=== PATIENT | female | born 1985 | race Caucasian/White ===

== ENCOUNTER → 2016-04-11 | Outpatient (REF) | payer OTHER ==
[~2016-04-11] MED LIST: COLA100C PO; IBUP80TA PO; PERCOCET PO; VITAPRTA PO
[2016-04-11 15:50] LABS: ANION GAP 9 MEQ/L (8-16); BLOOD UREA NITROGEN 6 MG/DL (7-18); CARBON DIOXIDE LEVEL 25 MEQ/L (21-32); CHLORIDE LEVEL 106 MEQ/L (98-107); GLOMERULAR FILTRATION RATE > 60.0 (>60); GLUCOSE, FASTING 81 MG/DL (70-105); POTASSIUM SERUM 4.4 MEQ/L (3.5-5.1); SODIUM LEVEL 140 MEQ/L (136-145)
[2016-04-12 10:08] LABS: CONTROL LINE INT CTR LINE PRESENT; HIV SCRN NEGATIVE (NEGATIVE); HIV SCRN1 NEGATIVE (NEGATIVE)
[2016-04-13 09:51] LABS: HEPATITIS B SURFACE ANTIBODY POSITIVE (POSITIVE)
== END ==
LOC: M SFHCPLAZ 12:30
PROVIDERS: ATTEND Internal Medicine Infectious Disease
DX: Z20.6 Contact with and (suspected) exposure to human immunodeficiency virus [HIV] (principal)

== ENCOUNTER → 2016-05-06 | Outpatient (REF) | payer MEDICAID, OTHER | LOC: M SFHCWAGY 11:37 | PROVIDERS: ATTEND Nurse Practitioner Women's Health | DX: Z12.4 Encounter for screening for malignant neoplasm of cervix (principal); R87.622 Low grade squamous intraepithelial lesion on cytologic smear of vagina (LGSIL); Z11.3 Encounter for screening for infections with a predominantly sexual mode of transmission ==

== ENCOUNTER → 2016-06-13 | Outpatient (REF) | payer OTHER | LOC: M SFHCWAGY 11:25 | PROVIDERS: ATTEND Nurse Practitioner Women's Health | DX: R87.810 Cervical high risk human papillomavirus (HPV) DNA test positive (principal); N87.1 Moderate cervical dysplasia ==

== ENCOUNTER → 2017-01-05 | Outpatient (REF) | payer OTHER ==
[~2017-01-05] MED LIST changes: -COLA100C PO; +COLA100C5 PO
[2017-01-05 13:44] LABS: CONTROL LINE HCG INT CTR LINE PRESENT
[2017-01-05 13:59] LABS: ANION GAP 8 MEQ/L (8-16); BLOOD UREA NITROGEN 10 MG/DL (7-18); CALCIUM LEVEL 9.1 MG/DL (8.5-10.1); CARBON DIOXIDE LEVEL 26 MEQ/L (21-32); CHLORIDE LEVEL 106 MEQ/L (98-107); CREATININE FOR GFR 0.71 MG/DL (0.55-1.02); GLOMERULAR FILTRATION RATE > 60.0 (>60); GLUCOSE, FASTING 77 MG/DL (70-105); POTASSIUM SERUM 4.2 MEQ/L (3.5-5.1); SODIUM LEVEL 140 MEQ/L (136-145)
== END ==
LOC: M SFHCPLAZ 10:53
PROVIDERS: ATTEND Family Medicine
DX: Z20.6 Contact with and (suspected) exposure to human immunodeficiency virus [HIV] (principal)

== ENCOUNTER → 2017-02-23 | Outpatient (REF) | payer OTHER | LOC: M LAB REF 17:54 | PROVIDERS: ATTEND Specialist | DX: N87.1 Moderate cervical dysplasia (principal) ==

== ENCOUNTER → 2017-04-21 | Outpatient (REF) | payer OTHER ==
[2017-04-21 13:59] LABS: CONTROL LINE HCG INT CTR LINE PRESENT; HCG, SERUM QUALITATIVE NEGATIVE (NEGATIVE)
[2017-04-21 15:22] LABS: HIV 1&2 SCREEN CENTAUR NEGATIVE (NEGATIVE)
== END ==
LOC: M SFHCPLAZ 11:22
DX: Z20.6 Contact with and (suspected) exposure to human immunodeficiency virus [HIV] (principal)
CPT/HCPCS: 84703

== ENCOUNTER → 2017-10-31 | Outpatient (REF) | payer OTHER ==
[2017-11-04 08:06] LABS: HPV HYBRID CAPTURE II Positive (Negative)
== END ==
LOC: M LAB REF 09:23
DX: Z12.4 Encounter for screening for malignant neoplasm of cervix (principal)
CPT/HCPCS: 88142

== ENCOUNTER → 2018-01-09 | Outpatient (REF) | payer OTHER ==
[2018-01-09 18:02] LABS: BASO # 0.1 10^3/uL (0.0-0.2); BASO % 0.4 % (0.0-1.0); EOS # 0.3 10^3/uL (0.0-0.50); EOS % 2.4 % (0.0-3.0); HEMATOCRIT 44.2 % (36.0-47.0); HEMOGLOBIN 14.8 g/dl (12.0-15.5); IMMATURE GRANULOCYTE % 0.6 % (0-3.0); LYMPH # 3.9 10^3/uL (1.5-4.5); LYMPH % 33.8 % (24.0-44.0); MEAN CORPUSCULAR HGB CONC 33.5 g/dl (32.0-36.5); MEAN CORPUSCULAR VOLUME 92.7 fl (80.0-96.0); MONO # 1.3 10^3/uL (0.0-0.8); MONO % 11.1 % (0.0-5.0); NEUTROPHILS # 5.9 10^3/uL (1.8-7.7); NEUTROPHILS % 51.7 % (36.0-66.0); PLATELET COUNT, AUTOMATED 297 10^3/uL (150-450); RED BLOOD COUNT 4.77 10^6/uL (4.00-5.40); RED CELL DISTRIBUTION WIDTH 12.4 % (11.5-14.5); WHITE BLOOD COUNT 11.5 10^3/uL (4.0-10.0)
[2018-01-09 22:14] LABS: ALBUMIN 4.1 GM/DL (3.2-5.2); ALBUMIN/GLOBULIN RATIO 1.37 (1.00-1.93); ALKALINE PHOSPHATASE 76 U/L (45-117); ALT/SGPT 23 U/L (12-78); ANION GAP 7 MEQ/L (8-16); AST/SGOT 18 U/L (7-37); BILIRUBIN,TOTAL 0.4 MG/DL (0.2-1.0); BLOOD UREA NITROGEN 10 MG/DL (7-18); CALCIUM LEVEL 9.6 MG/DL (8.5-10.1); CARBON DIOXIDE LEVEL 27 MEQ/L (21-32); CHLORIDE LEVEL 106 MEQ/L (98-107); CREATININE FOR GFR 0.72 MG/DL (0.55-1.30); GLOMERULAR FILTRATION RATE > 60.0 (>60); GLUCOSE, FASTING 87 MG/DL (70-100); POTASSIUM SERUM 4.2 MEQ/L (3.5-5.1); SODIUM LEVEL 140 MEQ/L (136-145); TOTAL PROTEIN 7.1 GM/DL (6.4-8.2)
[2018-01-10 10:10] LABS: HIV 1&2 SCREEN CENTAUR NEGATIVE (NEGATIVE)
== END ==
LOC: M SFHCPLAZ 14:46
DX: Z20.6 Contact with and (suspected) exposure to human immunodeficiency virus [HIV] (principal); I49.3 Ventricular premature depolarization; F32.1 Major depressive disorder, single episode, moderate
CPT/HCPCS: 80053

== ENCOUNTER → 2018-01-10 | Outpatient (CLI) | payer OTHER | LOC: M WUC 17:23 | DX: D72.829 Elevated white blood cell count, unspecified (principal) | CPT/HCPCS: 71046 ==

== ENCOUNTER → 2018-04-17 | Outpatient (REF) | payer OTHER ==
[2018-04-17 16:12] LABS: HCG, SERUM QUALITATIVE NEGATIVE (NEGATIVE)
[2018-04-17 17:40] LABS: BASO # 0.1 10^3/uL (0.0-0.2); BASO % 0.7 % (0.0-1.0); EOS # 0.3 10^3/uL (0.0-0.50); EOS % 2.3 % (0.0-3.0); HEMATOCRIT 45.4 % (36.0-47.0); HEMOGLOBIN 14.9 g/dl (12.0-15.5); LYMPH # 3.1 10^3/uL (1.5-4.5); LYMPH % 27.9 % (24.0-44.0); MEAN CORPUSCULAR HEMOGLOBIN 30.7 pg (27.0-33.0); MEAN CORPUSCULAR HGB CONC 32.8 g/dl (32.0-36.5); MEAN CORPUSCULAR VOLUME 93.4 fl (80.0-96.0); MONO # 1.5 10^3/uL (0.0-0.8); MONO % 13.7 % (0.0-5.0); NEUTROPHILS % 54.1 % (36.0-66.0); PLATELET COUNT, AUTOMATED 301 10^3/uL (150-450); RED BLOOD COUNT 4.86 10^6/uL (4.00-5.40); WHITE BLOOD COUNT 11.1 10^3/uL (4.0-10.0)
[2018-04-17 22:57] LABS: CHLAMYDIA DNA AMPLIFICATION NEGATIVE (NEGATIVE); GC DNA AMPLIFICATION NEGATIVE (NEGATIVE)
[2018-04-18 11:02] LABS: HIV 1&2 SCREEN CENTAUR NEGATIVE (NEGATIVE)
== END ==
LOC: M SFHCPLAZ 13:22
PROVIDERS: ATTEND Family Medicine
DX: D72.829 Elevated white blood cell count, unspecified (principal); Z20.6 Contact with and (suspected) exposure to human immunodeficiency virus [HIV]

== ENCOUNTER → 2018-07-03 | Outpatient (REF) | payer BC ==
[2018-07-03 15:55] LABS: BASO # 0.1 10^3/uL (0.0-0.2); BASO % 0.6 % (0.0-1.0); EOS # 0.2 10^3/uL (0.0-0.50); EOS % 1.9 % (0.0-3.0); HEMATOCRIT 46.9 % (36.0-47.0); HEMOGLOBIN 15.5 g/dl (12.0-15.5); LYMPH # 2.9 10^3/uL (1.5-4.5); LYMPH % 31.3 % (24.0-44.0); MEAN CORPUSCULAR HEMOGLOBIN 30.3 pg (27.0-33.0); MEAN CORPUSCULAR VOLUME 91.8 fl (80.0-96.0); MONO % 10.6 % (0.0-5.0); NEUTROPHILS # 5.1 10^3/uL (1.8-7.7); NEUTROPHILS % 54.7 % (36.0-66.0); PLATELET COUNT, AUTOMATED 346 10^3/uL (150-450); RED BLOOD COUNT 5.11 10^6/uL (4.00-5.40); WHITE BLOOD COUNT 9.3 10^3/uL (4.0-10.0)
[2018-07-03 16:19] LABS: ALBUMIN 4.1 GM/DL (3.2-5.2); ALT/SGPT 20 U/L (12-78); BILIRUBIN,TOTAL 0.4 MG/DL (0.2-1.0); BLOOD UREA NITROGEN 7 MG/DL (7-18); CALCIUM LEVEL 9.5 MG/DL (8.5-10.1); CARBON DIOXIDE LEVEL 26 MEQ/L (21-32); CHLORIDE LEVEL 105 MEQ/L (98-107); CREATININE FOR GFR 0.75 MG/DL (0.55-1.30); GLOMERULAR FILTRATION RATE > 60.0 (>60); GLUCOSE, FASTING 81 MG/DL (70-100); POTASSIUM SERUM 4.3 MEQ/L (3.5-5.1); SODIUM LEVEL 137 MEQ/L (136-145); TOTAL PROTEIN 7.6 GM/DL (6.4-8.2); TROPONIN I < 0.02 NG/ML (< 0.10)
[2018-07-04 11:16] LABS: HIV 1&2 SCREEN CENTAUR NEGATIVE (NEGATIVE)
== END ==
LOC: M SFHCPLAZ 14:22
PROVIDERS: ATTEND Family Medicine
DX: R22.1 Localized swelling, mass and lump, neck (principal); R52 Pain, unspecified; R50.9 Fever, unspecified; R06.02 Shortness of breath; R07.89 Other chest pain

== ENCOUNTER → 2018-07-03 | Outpatient (REF) | payer BC | LOC: M SFHCPLAZ 15:38 | PROVIDERS: ATTEND Family Medicine | DX: R22.1 Localized swelling, mass and lump, neck (principal); R50.9 Fever, unspecified ==

== ENCOUNTER → 2018-07-03 | Outpatient (CLI) | payer BC ==
--- NOTE | 2018-07-03 16:08 | REP ---
HISTORY: Cough. COMPARISON: Multiple, the latest 01/10/2018. FINDINGS: The superior mediastinal structures are midline. The cardiac silhouette is unremarkable in size, shape and position. The diaphragmatic surfaces of the lungs are regular and the costophrenic angles are clear. The pulmonary cerda are clear. The imaged osseous structures are intact. IMPRESSION: There is no acute cardiopulmonary disease. Electronically Signed by Sean Barajas DO 07/03/2018 04:31 P
== END ==
LOC: M RAD 14:47
PROVIDERS: ATTEND Family Medicine
DX: R06.02 Shortness of breath (principal)

== ENCOUNTER 2018-08-08 19:12 | Day surgery (SDC) | payer BC ==
[~2018-08-08] VITALS: Ht 162.6 cm; Wt 68.6 kg
[2018-08-08] MEDS ORDERED: TRUVTAB PO (19:28)
[2018-08-08 20:03] LABS: BASO # 0.1 10^3/uL (0.0-0.2); BASO % 0.4 % (0.0-1.0); EOS # 0.2 10^3/uL (0.0-0.50); EOS % 1.2 % (0.0-3.0); HEMATOCRIT 43.5 % (36.0-47.0); HEMOGLOBIN 14.7 g/dl (12.0-15.5); LYMPH # 4.5 10^3/uL (1.5-4.5); LYMPH % 29.7 % (24.0-44.0); MEAN CORPUSCULAR HEMOGLOBIN 30.7 pg (27.0-33.0); MEAN CORPUSCULAR HGB CONC 33.8 g/dl (32.0-36.5); MEAN CORPUSCULAR VOLUME 90.8 fl (80.0-96.0); MONO # 1.5 10^3/uL (0.0-0.8); MONO % 10.1 % (0.0-5.0); NEUTROPHILS # 8.7 10^3/uL (1.8-7.7); NEUTROPHILS % 57.7 % (36.0-66.0); PLATELET COUNT, AUTOMATED 312 10^3/uL (150-450); RED BLOOD COUNT 4.79 10^6/uL (4.00-5.40); WHITE BLOOD COUNT 15.1 10^3/uL (4.0-10.0)
[2018-08-08 21:04] LABS: BLOOD UREA NITROGEN 7 MG/DL (7-18); CALCIUM LEVEL 8.9 MG/DL (8.5-10.1); CARBON DIOXIDE LEVEL 23 MEQ/L (21-32); CHLORIDE LEVEL 106 MEQ/L (98-107); CREATININE FOR GFR 0.66 MG/DL (0.55-1.30); GLOMERULAR FILTRATION RATE > 60.0 (>60); GLUCOSE, FASTING 108 MG/DL (70-100); HCG, SERUM QUANTITATIVE 1882 MIU/ML; POTASSIUM SERUM 4.1 MEQ/L (3.5-5.1); SODIUM LEVEL 137 MEQ/L (136-145)
[2018-08-08] MEDS ORDERED: MORPHINE 4 MG/ML 1ML VIAL/SYRINGE (J2270) IV ONE (21:30)
[2018-08-08] MEDS ORDERED: NS 1,000 ML IV ONE (21:30)
[2018-08-08] MEDS ORDERED: ONDANSETRON 4MG/2ML VIAL (J2405) IV ONE (21:30)
--- NOTE | 2018-08-08 22:13 | REPVR ---
EXAM: US First Trimester, Transabdominal and US , Transvaginal US Duplex Artery or Vein of the Abdominal and/or Reproductive Organs, Limited Ovaries EXAM DATE/TIME: 08/08/2018 9:40 PM CLINICAL HISTORY: 32 years old, female; complicated by abdominal or pelvic pain; Right lower quadrant; First trimester; Gestational age or lmp: 6; ; Additional info: Vaginal bleeding TECHNIQUE: Imaging protocol: Real-time transabdominal obstetrical ultrasound of the maternal pelvis and a first trimester , less than 14 weeks 0 days, with image documentation. Transvaginal imaging was used for better evaluation of the fetus and adnexa. Imaging protocol: Real-time duplex ultrasound scan of the arterial or venous flow with solo scale, color Doppler flow and spectral waveform analysis. Limited duplex exam focused on the ovaries. Duplex exam was performed to evaluate for ovarian torsion or mass. COMPARISON: None. FINDINGS: The uterus is anteverted and measures 7.9 x 4.3 x 5.3 cm. The endometrium was not measured, but appears thickened. No intrauterine gestational sac was identified. The right ovary measures 2.7 x 2.0 x 3.8 cm and contains a 1.6 x 1.6 x 1.2 cm corpus luteum. There is normal internal arterial flow to brain, with peak systolic velocity 24.9 cm/s, end diastolic velocity 12.1 cm/s and resistive index 0.51. Adjacent to the right ovary in the adnexa is a hyperechoic, thickwalled mass measuring 2.9 x 2.6 x 2.7 cm. The left ovary measures 1.4 x 3.5 x 1.7 cm and appears unremarkable. There is normal internal arterial flow, with peak systolic velocity 8.2 cm/s, end diastolic velocity 4.3 cm/s and resistive index 0.48. No significant free fluid is demonstrated in the pelvis. IMPRESSION: 1. No intrauterine gestation identified. 2. Thickwalled right adnexal mass adjacent to the ovary measuring up to 2.9 cm, suspicious for ectopic until proven otherwise. 3. 1.6 cm right ovarian corpus luteum. 4. Normal internal arterial flow to both ovaries, without torsion. Electronically signed by: Yung Landrum On 08/08/2018 22:13:45 PM
[2018-08-08] MEDS ORDERED: BUPIVACAINE HCL 0.25% 30 ML VIAL As Ordered ONE (22:46)
[2018-08-08] MEDS ORDERED: IBUP-1093 PO (22:57)
[2018-08-08] MEDS ORDERED: LIDOCAINE 2% INJ 100 MG/5 ML SDV (FOR ANES.) As Ordered ONE (23:11)
[2018-08-08] MEDS ORDERED: ROCURONIUM BROMIDE 50 MG/5 ML VIAL As Ordered ONE (23:11)
[2018-08-08] MEDS ORDERED: PROPOFOL 200 MG/20 ML VIAL As Ordered ONE (23:11)
[2018-08-08] MEDS ORDERED: MIDAZOLAM INJ 2 MG/2 ML VIAL (J2250) As Ordered ONE (23:12)
[2018-08-08] MEDS ORDERED: fentaNYL 250 MCG/5 ML INJECTION (J3010) As Ordered ONE (23:12)
[2018-08-08] MEDS ORDERED: dexameTHASONE 4 MG/ML 1ML VIAL (J1100) As Ordered ONE (23:34)
[2018-08-08] MEDS ORDERED: ONDANSETRON 4MG/2ML VIAL (J2405) As Ordered ONE (23:46)
[2018-08-08] MEDS ORDERED: KETOROLAC 60 MG/2 ML VIAL (J1885) As Ordered ONE (23:46)
[2018-08-09] VITALS (7 sets, daily range): BP systolic 98–128; BP diastolic 56–72
[2018-08-09] MEDS ORDERED: SUGAMMADEX SODIUM 500 MG/5 ML VIAL (BRIDION) As Ordered ONE (00:01)
[2018-08-09] MEDS ORDERED: fentaNYL 100 MCG/2 ML INJECTION (J3010) As Ordered ONE (00:22)
[2018-08-09] MEDS: fentaNYL 100 MCG/2 ML INJECTION (J3010) IV PRN ×3 (00:25→00:40)
[2018-08-09] MEDS ORDERED: PERCOCET 5MG/325MG TAB As Ordered ONE (00:26)
[2018-08-09] MEDS ORDERED: LR 1,000 ML IV SCH ×2 (00:30)
[2018-08-09] MEDS ORDERED: PERCOCET 5MG/325MG TAB PO PRN ×3 (00:30)
[2018-08-09] MEDS ORDERED: ONDANSETRON 4MG/2ML VIAL (J2405) IV PRN (00:30)
[2018-08-09] MEDS ORDERED: MEPERIDINE INJ 25 MG/ML VIAL (J2175) IV PRN (00:30)
[2018-08-09] MEDS ORDERED: METOCLOPRAMIDE INJ 10MG/2ML VIAL (J2765) IV PRN (00:30)
[2018-08-09] MEDS ORDERED: OXYC1TAB23 PO (09:20)
[2018-08-09] MEDS ORDERED: IBUP-1022 PO (09:21)
[2018-08-09] MEDS ORDERED: IBUPROFEN 800 MG TAB PO PRN (09:30)
--- NOTE | 2018-08-09 16:34 | RO ---
DATE OF PROCEDURE: 08/08/2018 PREPROCEDURE DIAGNOSIS: Right ectopic . POSTPROCEDURE DIAGNOSIS: Right ectopic . PROCEDURE: Laparoscopic right salpingectomy. SURGEON: Conor Mckeon MD TRAFFIC DIRECTOR: ANESTHESIA: General endotracheal. FINDINGS: 4 cm ectopic in the ampullary portion of the right fallopian tube, adhesions of omentum to the anterior abdominal wall, adhesions of bladder to the uterus and anterior abdominal wall from prior sections, normal appearing left ovary and fallopian tube. Filmy adhesions of the posterior cul-de-sac. ESTIMATED BLOOD LOSS: 25 mL. URINE OUTPUT: 75 mL. DESCRIPTION OF PROCEDURE: The patient was taken to the operating room where general endotracheal anesthesia was induced. She was prepped and draped in a sterile fashion in the dorsal lithotomy position. A Lai catheter was placed. The [place] uterine tenaculum was placed to use as a uterine manipulator. Periumbilical incision was made with a scalpel. Veress needle was placed through the this incision while tenting up on the skin of the abdomen. Intraabdominal location of the Veress needle was assessed with the use of a saline-filled syringe. Pneumoperitoneum was created. Veress needle was removed. An 11 mm trocar using Visiport was inserted through this incision. Two 5 mm suprapubic ports were placed under direct visualization. Adhesions of the omentum to the anterior abdominal wall were taken down sharply with the Harmonic scalpel. This allowed visualization of the pelvis. The right ectopic was elevated with a grasping instrument. Harmonic scalpel was used to create an incision on the antimesenteric side of the fallopian tube. There was extensive bleeding from the fallopian tube due to blood dissecting through different layers of the muscularis of the tube. In spite of our best efforts, the tube continued to bleed and the would not shell out with any degree of ease. Due to extensive damage to the right fallopian tube, the decision was made to perform salpingectomy. Harmonic scalpel was used to cross-clamp the proximal part of the tube, which was coagulated and incised with the Harmonic scalpel. Broad ligament attachments and tube were coagulated and incised. The fallopian tube was removed intact. Good hemostasis was noted. A suction assembler fluorescent lights device was used to evacuate blood from the pelvis. Specimen was placed in an Endo Catch bag and removed through the umbilical port. The pneumoperitoneum was released. All instruments were removed. Skin was closed with #4-0 Monocryl subcuticular sutures. Sponge, instrument and needle counts were correct.
== END 2018-08-09 11:28 | disposition home or self-care (01) ==
LOC: M ED 19:12 → M SDC 22:00 → M PED 08-09 01:00 → M SDC 08-09 11:28
PROVIDERS: ATTEND Specialist
DX: O00.90 Unspecified ectopic pregnancy without intrauterine pregnancy (principal); G43.909 Migraine, unspecified, not intractable, without status migrainosus; Z79.899 Other long term (current) drug therapy; F17.210 Nicotine dependence, cigarettes, uncomplicated
CPT/HCPCS: 59151; 76801; 80048; 81001; 84702; 85025; 86850; 86900; 86901; 88305; 96374; 96375; 99284; J1100; J1885; J2250; J2270; J2405; J3010

== ENCOUNTER → 2018-08-16 | Outpatient (CLI) | payer BC ==
[~2018-08-16] MED LIST changes: +E-Z-GAS II EFFERVESCENT PACKET (SODIUM BICARB./CITRIC ACID/SIMETHICONE) As Ordered ONE; +E-Z-HD 98% w/w 340GM SUSP BTL As Ordered ONE; +E-Z-PAQUE 96% w/w SUSP 176GM BTL As Ordered ONE; +IBUP-1022 PO; +IBUP-1093 PO; +OXYC1TAB23 PO; +TRUVTAB PO
--- NOTE | 2018-08-16 17:01 | REP ---
Examination Requested: Esophagram Barium Swallow Reason For Exam/Comment: Dysphasia Esophagram: The procedure was performed HECTOR Bhatt, under the direct supervision of Dr. Merritt. The images were reviewed with Dr. Merritt. A single PA chest x-ray is submitted as a excavating supervisor film. The superior mediastinal structures are midline. The heart size is within normal limits. The lungs are clear. Liquid barium and gas producing granules were given in the erect position as well as liquid barium in the prone oblique position, in order to perform a double contrast esophagram examination. Oral and pharyngeal stages of the examination were unremarkable. Esophageal transport is efficient and there is no esophagitis, stricture, or mucosal ring noted. There is no hiatal hernia noted. Gastroesophageal reflux was not observed throughout the course of the examination. Impression: 1. Unremarkable barium swallow 0.4 minutes of fluoroscopy time was utilized for this procedure. Reviewed by HECTOR Pennington 08/16/2018 04:49 P Electronically Signed by Danish Merritt MD 08/16/2018 04:53 P
== END ==
LOC: M RAD 07:48
PROVIDERS: ATTEND Specialist
DX: R13.13 Dysphagia, pharyngeal phase (principal)

== ENCOUNTER → 2018-09-11 | Outpatient (CLI) | payer BC ==
[~2018-09-11] MED LIST changes: -E-Z-GAS II EFFERVESCENT PACKET (SODIUM BICARB./CITRIC ACID/SIMETHICONE) As Ordered ONE; -E-Z-HD 98% w/w 340GM SUSP BTL As Ordered ONE; -E-Z-PAQUE 96% w/w SUSP 176GM BTL As Ordered ONE
== END ==
LOC: M SMT 11:57
PROVIDERS: ATTEND Specialist
DX: N92.1 Excessive and frequent menstruation with irregular cycle (principal)

== ENCOUNTER → 2021-12-30 | Outpatient (CLI) | payer BC ==
[~2021-12-30] MED LIST changes: +EMTR1TAB16 PO; -IBUP-1093 PO; +IBUP-1730 PO; -TRUVTAB PO
[2021-12-30 13:42] LABS: BASO % 0.4 % (0.0-1.0); EOS # 0.1 10^3/uL (0.0-0.5); EOS % 1.3 % (0.0-3.0); HEMATOCRIT 39.9 % (36.0-47.0); HEMOGLOBIN 13.1 g/dl (12.0-15.5); LYMPH % 30.5 % (24.0-44.0); MEAN CORPUSCULAR HGB CONC 32.8 g/dl (32.0-36.5); MEAN CORPUSCULAR VOLUME 94.3 fl (80.0-96.0); MONO # 1.1 10^3/uL (0.0-0.8); MONO % 10.8 % (2.0-8.0); NEUTROPHILS # 5.6 10^3/uL (1.5-8.5); NEUTROPHILS % 56.1 % (36.0-66.0); PLATELET COUNT, AUTOMATED 280 10^3/uL (150-450); RED BLOOD COUNT 4.23 10^6/uL (4.00-5.40); WHITE BLOOD COUNT 9.9 10^3/uL (4.0-10.0)
[2021-12-30 15:05] LABS: HEPATITIS C VIRUS ABY INDEX < 0.0 INDEX (<0.8); HIV 1&2 SCREEN CENTAUR NEGATIVE (NEGATIVE)
[2021-12-30 17:07] LABS: GC DNA AMPLIFICATION NEGATIVE (NEGATIVE)
== END ==
LOC: M PLALAB 11:02
PROVIDERS: ATTEND Specialist
DX: Z36.89 Encounter for other specified antenatal screening (principal)

== ENCOUNTER → 2022-01-18 | Outpatient (CLI) | payer BC ==
[2022-01-18 14:54] LABS: ALT/SGPT 33 U/L (12-78); BILIRUBIN,TOTAL 0.3 MG/DL (0.2-1.0); CREATININE FOR GFR 0.44 MG/DL (0.55-1.30); GLOMERULAR FILTRATION RATE > 60.0 (>60); LDH LACTATE DEHYDROGENASE 158 U/L (84-246); URIC ACID 3.4 MG/DL (2.6-6.0)
[2022-01-18 15:02] LABS: CREATININE,RANDOM URINE 16.2 MG/DL; TOTAL PROTEIN,RANDOM URINE 60.3 MG/DL (0.0-12.0)
== END ==
LOC: M PLALAB 10:07
PROVIDERS: ATTEND Advanced Practice Midwife
DX: O09.521 Supervision of elderly multigravida, first trimester (principal)

== ENCOUNTER → 2022-03-16 | Outpatient (CLI) | payer BC | LOC: M WHC 08:57 | PROVIDERS: ATTEND Specialist | DX: Z34.82 Encounter for supervision of other normal pregnancy, second trimester (principal); Z3A.18 18 weeks gestation of pregnancy ==

== ENCOUNTER → 2022-04-26 | Outpatient (CLI) | payer BC ==
[2022-04-26 16:01] LABS: HEMATOCRIT 31.3 % (36.0-47.0); HEMOGLOBIN 10.1 g/dl (12.0-15.5); MEAN CORPUSCULAR HEMOGLOBIN 31.2 pg (27.0-33.0); MEAN CORPUSCULAR HGB CONC 32.3 g/dl (32.0-36.5); MEAN CORPUSCULAR VOLUME 96.6 fl (80.0-96.0); PLATELET COUNT, AUTOMATED 280 10^3/uL (150-450); RED BLOOD COUNT 3.24 10^6/uL (4.00-5.40); WHITE BLOOD COUNT 13.5 10^3/uL (4.0-10.0)
== END ==
LOC: M PLALAB 09:42
PROVIDERS: ATTEND Specialist
DX: Z34.92 Encounter for supervision of normal pregnancy, unspecified, second trimester (principal); Z3A.23 23 weeks gestation of pregnancy

== ENCOUNTER → 2022-05-24 | Outpatient (REF) | payer BC ==
[2022-05-25 14:42] LABS: GC DNA AMPLIFICATION NEGATIVE (NEGATIVE)
== END ==
LOC: M SFHCWAGY 12:56
PROVIDERS: ATTEND Specialist
DX: Z34.80 Encounter for supervision of other normal pregnancy, unspecified trimester (principal)

== ENCOUNTER → 2022-05-26 | Outpatient (CLI) | payer BC | LOC: M LAB 07:27 | PROVIDERS: ATTEND Obstetrics & Gynecology | DX: Z34.82 Encounter for supervision of other normal pregnancy, second trimester (principal) ==

== ENCOUNTER 2022-06-21 17:35 | Inpatient (IN) | payer BC, MEDICAID ==
[2022-06-21] VITALS (26 sets, daily range): BP systolic 138–178; BP diastolic 81–111
[~2022-06-21] VITALS: Ht 162.6 cm; Wt 75.5 kg
[~2022-06-21 17:35] MED LIST changes: -CALC-265 PO; -ECOT81TA5 PO; -GNP250TA9 PO; -IBUP-1114 PO; -LABE20TAB PO; -PRENTAB9 PO
[2022-06-21] MEDS ORDERED: BETAMETHASONE SOLUSPAN 6MG/ML 5ML VIAL IM ONE (18:00)
[2022-06-21] MEDS ORDERED: ECOT81TA5 PO (18:14)
[2022-06-21] MEDS ORDERED: CALC-265 PO (18:14)
[2022-06-21] MEDS ORDERED: IBUP-1114 PO (18:14)
[2022-06-21] MEDS ORDERED: GNP250TA9 PO (18:14)
[2022-06-21] MEDS ORDERED: PRENTAB9 PO (18:14)
[2022-06-21] MEDS ORDERED: HOME MED LIST COMPLETE! XX SCH (18:40)
[2022-06-21] MEDS ORDERED: NIFEdipine 10 MG CAP PO ONE (20:55)
[2022-06-21] MEDS ORDERED: LACTATED RINGER'S 1000 ML IV STA (23:21)
[2022-06-21] MEDS ORDERED: ceFAZolin SOD 2 GM in IV 1 EA IV ONE (23:25)
[2022-06-21] MEDS ORDERED: LR 1,000 ML IV SCH (23:25)
[2022-06-21] MEDS ORDERED: BICITRA 30ML SOLN UDC PO ONE (23:25)
[2022-06-21] MEDS ORDERED: LR 1,000 ML IV ONE (23:35)
[2022-06-22] VITALS (12 sets, daily range): BP systolic 142–175; BP diastolic 76–105
[2022-06-22 00:23] LABS: HEMATOCRIT 36.6 % (36.0-47.0); HEMOGLOBIN 12.5 g/dl (12.0-15.5); MEAN CORPUSCULAR HEMOGLOBIN 31.4 pg (27.0-33.0); MEAN CORPUSCULAR HGB CONC 34.2 g/dl (32.0-36.5); PLATELET COUNT, AUTOMATED 212 10^3/uL (150-450); RED BLOOD COUNT 3.98 10^6/uL (4.00-5.40); WHITE BLOOD COUNT 17.4 10^3/uL (4.0-10.0)
[2022-06-22] MEDS ORDERED: fentaNYL 100 MCG/2 ML INJECTION As Ordered ONE ×2 (01:18→01:42)
[2022-06-22] MEDS ORDERED: MORPHINE PRES-FREE INJ 10 MG/10 ML VIAL As Ordered ONE (01:18)
[2022-06-22] MEDS ORDERED: MIDAZOLAM INJ 2MG/2ML VIAL As Ordered ONE (01:24)
[2022-06-22] MEDS ORDERED: KETAMINE HCL 200MG/20ML VIAL As Ordered ONE (01:28)
[2022-06-22] MEDS ORDERED: propofoL 200 MG/20 ML VIAL As Ordered ONE (01:40)
[2022-06-22] MEDS ORDERED: ONDANSETRON 4MG 2ML VIAL As Ordered ONE (01:46)
[2022-06-22] MEDS ORDERED: ACETAMINOPHEN 1000MG 100ML IV BAG As Ordered ONE (01:46)
[2022-06-22] MEDS ORDERED: KETOROLAC 60MG 2ML VIAL As Ordered ONE (01:46)
[2022-06-22 01:48] LABS: CORD GAS ABE A -3.1; CORD GAS ABE V -2.6; CORD GAS HCO3 A 24.5 MEQ/L; CORD GAS HCO3 V 24.3 MEQ/L; CORD GAS O2 SAT A 33.9 %; CORD GAS O2 SAT V 16.8 %; CORD GAS PCO2 A 52.8 mmHg; CORD GAS PCO2 V 49.8 mmHg; CORD GAS PH A 7.284 UNITS; CORD GAS PH V 7.306 UNITS; CORD GAS PO2 A 16.2 mmHg; CORD GAS SBC A 20.3 MEQ/L; CORD GAS SBC V 20.2 MEQ/L; CORD GAS TCO2 A 26.1 MEQ/L; CORD GAS TCO2 V 25.8 MEQ/L
[2022-06-22 02:15] LABS: AMPHETAMINES URINE REFLEX NEGATIVE (NEGATIVE); BARBITURATES URINE REFLEX NEGATIVE (NEGATIVE); BENZODIAZEPINES URINE REFLEX NEGATIVE (NEGATIVE); COCAINE METABOLITE URINE REFLE NEGATIVE (NEGATIVE); METHADONE URINE REFLEX NEGATIVE (NEGATIVE)
[2022-06-22 02:16] LABS: CANNABINOIDS URINE REFLEX NEGATIVE (NEGATIVE); OPIATES URINE REFLEX NEGATIVE (NEGATIVE); PHENCYCLIDINE URINE REFLEX NEGATIVE (NEGATIVE)
[2022-06-22] MEDS ORDERED: diphenhydrAMINE 50MG/ML VIAL IV PRN (02:20)
[2022-06-22] MEDS ORDERED: NALBUPHINE HCL 10 MG/ML 1ML AMP IV PRN (02:20)
[2022-06-22] MEDS ORDERED: METOCLOPRAMIDE INJ 10MG/2ML VIAL IV PRN (02:20)
[2022-06-22] MEDS ORDERED: **NOTE PATIENT COMMENT** MISC XX SCH (02:20)
[2022-06-22] MEDS ORDERED: NALOXONE INJ 0.4MG/1ML VIAL IV PRN ×2 (02:20)
[2022-06-22] MEDS ORDERED: ONDANSETRON 4MG 2ML VIAL IV PRN (02:20)
[2022-06-22] MEDS ORDERED: OXYTOCIN DRIP 30 UNITS in IV 1 EA IV SCH (02:45)
[2022-06-22] MEDS ORDERED: RHOGAM 300MCG (1500IU) INJ IM SCH (02:45)
[2022-06-22] MEDS ORDERED: DOCUSATE SODIUM 100MG CAPSULE PO PRN (02:45)
[2022-06-22] MEDS ORDERED: OXYTOCIN 30UNITS IN 0.9% NaCl 500ML IV BAG As Ordered ONE (02:51)
[2022-06-22] MEDS ORDERED: PERCOCET 5MG/325MG TAB As Ordered ONE (02:54)
[2022-06-22] MEDS: PERCOCET 5MG/325MG TAB PO PRN ×2 (02:58→08:51)
[2022-06-22] MEDS ORDERED: SLF 3 ML SYR IV SCH (03:00)
[2022-06-22] MEDS ORDERED: NIFEdipine 10 MG CAP PO ONE ×2 (03:15→04:00)
[2022-06-22] MEDS: LR 1,000 ML IV SCH ×2 (04:18→10:45)
[2022-06-22] MEDS: NICOTINE 21MG/24HR 1 EA TRANSDERMAL TD SCH ×2 (05:00→09:00)
[2022-06-22] MEDS: SIMETHICONE 80MG CHEW TAB PO PRN (06:43)
[2022-06-22] MEDS: PRENATAL VITAMINS CHEWABLE TABLET PO SCH (08:49)
[2022-06-22] MEDS: KETOROLAC 30 MG/ML 1ML VIAL IV SCH ×3 (08:52→19:56)
[2022-06-22] MEDS: LABETALOL 100MG TAB PO SCH (22:44)
[2022-06-23] VITALS (8 sets, daily range): BP systolic 123–170; BP diastolic 68–96
[2022-06-23] MEDS: IBUPROFEN 800 MG TAB PO SCH ×3 (04:57→20:50)
[2022-06-23 07:11] LABS: HEMATOCRIT 26.9 % (36.0-47.0); MEAN CORPUSCULAR HEMOGLOBIN 31.7 pg (27.0-33.0); MEAN CORPUSCULAR HGB CONC 33.5 g/dl (32.0-36.5); MEAN CORPUSCULAR VOLUME 94.7 fl (80.0-96.0); PLATELET COUNT, AUTOMATED 172 10^3/uL (150-450); RED BLOOD COUNT 2.84 10^6/uL (4.00-5.40)
[2022-06-23] MEDS: PRENATAL VITAMINS CHEWABLE TABLET PO SCH (09:01)
[2022-06-23] MEDS: LABETALOL 100MG TAB PO SCH (09:02)
[2022-06-23] MEDS: PERCOCET 5MG/325MG TAB PO PRN ×2 (09:02→14:27)
[2022-06-23] MEDS: SIMETHICONE 80MG CHEW TAB PO PRN ×2 (09:02→14:26)
[2022-06-23] MEDS: NICOTINE 21MG/24HR 1 EA TRANSDERMAL TD SCH (10:30)
[2022-06-23] MEDS ORDERED: LABETALOL 100MG TAB PO STA (10:47)
[2022-06-23] MEDS ORDERED: OXYC1TAB23 PO (11:48)
[2022-06-23] MEDS ORDERED: IBUP80TA PO (11:48)
[2022-06-23 13:00] LABS: ALBUMIN 1.4 G/DL (3.2-5.2); ALKALINE PHOSPHATASE 80 U/L (46-116); ALT/SGPT 13 U/L (7.0-40); AST/SGOT 22 U/L (<34); BILIRUBIN,TOTAL < 0.2 MG/DL (0.3-1.2); BLOOD UREA NITROGEN 18 MG/DL (9-23); CALCIUM LEVEL 8.3 MG/DL (8.5-10.1); CARBON DIOXIDE LEVEL 24 MMOL/L (20-31); CHLORIDE LEVEL 105 MMOL/L (98-107); CREATININE FOR GFR 0.72 MG/DL (0.55-1.30); GLOMERULAR FILTRATION RATE > 60.0 (>60); GLUCOSE, FASTING 87 MG/DL (60-100); POTASSIUM SERUM 4.2 MMOL/L (3.5-5.1); SODIUM LEVEL 134 MMOL/L (136-145)
[2022-06-23] MEDS: LABETALOL 200 MG TAB PO SCH (20:51)
[2022-06-24] VITALS (7 sets, daily range): BP systolic 134–169; BP diastolic 79–95
[2022-06-24] MEDS: IBUPROFEN 800 MG TAB PO SCH ×3 (04:27→20:41)
[2022-06-24] MEDS ORDERED: MEASLES,MUMPS,RUBELLA VACCINE INJ (MMR-II) SC.IMMUN ONE (09:00)
[2022-06-24] MEDS: PRENATAL VITAMINS CHEWABLE TABLET PO SCH (09:16)
[2022-06-24] MEDS: LABETALOL 200 MG TAB PO SCH ×2 (09:16→20:40)
[2022-06-24] MEDS: PERCOCET 5MG/325MG TAB PO PRN (09:22)
[2022-06-24] MEDS: NICOTINE 21MG/24HR 1 EA TRANSDERMAL TD SCH (10:11)
[2022-06-24] MEDS ORDERED: NIFEdipine 10 MG CAP PO ONE (23:35)
[2022-06-25 00:14] VITALS: BP_SYST 152; BP_SYST 158; BP_DIAS 86
[2022-06-25 03:27] VITALS: BP 132/77
[2022-06-25] MEDS: IBUPROFEN 800 MG TAB PO SCH ×2 (03:28→11:20)
[2022-06-25 06:00] VITALS: BP 136/72
[2022-06-25 08:23] VITALS: BP 135/73
[2022-06-25] MEDS: LABETALOL 200 MG TAB PO SCH (08:23)
[2022-06-25] MEDS: PRENATAL VITAMINS CHEWABLE TABLET PO SCH (08:24)
[2022-06-25] MEDS: NICOTINE 21MG/24HR 1 EA TRANSDERMAL TD SCH (08:24)
[2022-06-25] MEDS: PERCOCET 5MG/325MG TAB PO PRN (08:25)
[2022-06-25 08:34] VITALS: BP 135/73
[2022-06-25 10:45] VITALS: BP 138/78
[2022-06-25] MEDS ORDERED: COLA100C5 PO (11:05)
[2022-06-25] MEDS ORDERED: ACETAMINOPHEN 500 MG TAB PO ONE (11:10)
[2022-06-25] MEDS ORDERED: LABE20TAB PO (12:03)
== END 2022-06-25 13:21 | disposition home or self-care (01) | DRG 540 ==
LOC: M LDO 17:35 → M LDI 23:19 → M OBS 06-22 03:35
PROVIDERS: ADMIT Specialist; ATTEND Specialist
PROC: 0UB60ZZ Excision of Left Fallopian Tube, Open Approach (ICD-10-PCS; 2022-06-22)
PROC: 10D00Z1 Extraction of Products of Conception, Low, Open Approach (ICD-10-PCS; principal; 2022-06-22 02:01)
DX: O36.5930 Maternal care for other known or suspected poor fetal growth, third trimester, not applicable or unspecified (principal); F17.210 Nicotine dependence, cigarettes, uncomplicated; O34.211 Maternal care for low transverse scar from previous cesarean delivery; O14.14 Severe pre-eclampsia complicating childbirth; O99.334 Smoking (tobacco) complicating childbirth; Z3A.32 32 weeks gestation of pregnancy; Z37.0 Single live birth; O36.8330 Maternal care for abnormalities of the fetal heart rate or rhythm, third trimester, not applicable or unspecified; Z30.2 Encounter for sterilization; Z90.79 Acquired absence of other genital organ(s); O09.523 Supervision of elderly multigravida, third trimester

== ENCOUNTER → 2022-06-21 | Outpatient (CLI) | payer BC ==
[~2022-06-21] MED LIST changes: +CALC-265 PO; +ECOT81TA5 PO; +GNP250TA9 PO; +IBUP-1114 PO; +LABE20TAB PO; +PRENTAB9 PO
[2022-06-21 15:15] LABS: LDH LACTATE DEHYDROGENASE 260 U/L (120-246)
[2022-06-21 15:16] LABS: ALT/SGPT 14 U/L (7.0-40); AST/SGOT 21 U/L (<34); BILIRUBIN,TOTAL 0.2 MG/DL (0.3-1.2); CREATININE FOR GFR 0.68 MG/DL (0.55-1.30); GLOMERULAR FILTRATION RATE > 60.0 (>60); HEMATOCRIT 34.6 % (36.0-47.0); HEMOGLOBIN 11.5 g/dl (12.0-15.5); MEAN CORPUSCULAR HEMOGLOBIN 31.3 pg (27.0-33.0); MEAN CORPUSCULAR HGB CONC 33.2 g/dl (32.0-36.5); MEAN CORPUSCULAR VOLUME 94.3 fl (80.0-96.0); RED BLOOD COUNT 3.67 10^6/uL (4.00-5.40)
[2022-06-21 15:17] LABS: PLATELET COUNT, AUTOMATED 189 10^3/uL (150-450)
[2022-06-21 15:36] LABS: CREATININE,RANDOM URINE 122.2 MG/DL
[2022-06-21 15:41] LABS: TOTAL PROTEIN,RANDOM URINE 842.3 MG/DL (0.0-14.0)
== END ==
LOC: M PLALAB 09:19
PROVIDERS: ATTEND Obstetrics & Gynecology
DX: O13.9 Gestational [pregnancy-induced] hypertension without significant proteinuria, unspecified trimester (principal)

== ENCOUNTER 2024-06-04 07:19 | Day surgery (SDC) | payer MEDICAID, OTHER, SELFPAY ==
[~2024-06-04] VITALS: Ht 162.6 cm; Wt 71.7 kg
[~2024-06-04 07:19] MED LIST changes: +AMLO1TAB25 PO; +BUPR-71 PO; +CALC-265 PO; +ECOT81TA5 PO; +GNP250TA9 PO; +HYDR12CA PO; +IBUP-1114 PO; +IBUP200C29 PO; +LABE20TAB PO; +PRENTAB9 PO
[2024-06-04] MEDS ORDERED: propofoL 200 MG/20 ML VIAL As Ordered ONE (08:12)
[2024-06-04] MEDS ORDERED: ROCURONIUM BROMIDE 50MG/5ML VIAL As Ordered ONE (08:12)
[2024-06-04] MEDS ORDERED: LIDOCAINE 2% 100MG/5ML SDV (FOR ANES.) As Ordered ONE (08:12)
[2024-06-04] MEDS ORDERED: fentaNYL 250 MCG/5 ML INJECTION As Ordered ONE (08:13)
[2024-06-04] MEDS ORDERED: MIDAZOLAM INJ 2MG/2ML VIAL As Ordered ONE (08:13)
[2024-06-04] MEDS ORDERED: OXYMETAZOLINE 0.05% NASAL SPRAY As Ordered ONE (08:22)
[2024-06-04] MEDS: LR 1,000 ML IV SCH (08:26)
[2024-06-04] MEDS: AMPICILLIN SOD/SULBACTAM SOD 3 GM in D5W MINI-BAG 100 ML IV ONE (09:52)
[2024-06-04] MEDS ORDERED: ACETAMINOPHEN 1000MG/100ML IV BAG As Ordered ONE (10:10)
[2024-06-04] MEDS: SCOPOLAMINE 1MG TRANSDERMAL PATCH As Ordered ONE (10:14)
[2024-06-04] MEDS: CHLORHEXIDINE GLUCONATE 0.12 % 15ML UDC (PERIDEX ORAL RINSE) As Ordered ONE (10:15)
[2024-06-04] MEDS: LIDOCAINE 2% W/ EPINEPHRINE 1.7 ML DENTAL INJ As Ordered ONE (10:19)
[2024-06-04] MEDS ORDERED: KETOROLAC 30 MG/ML 1ML VIAL As Ordered ONE (10:22)
[2024-06-04] MEDS ORDERED: SUGAMMADEX SODIUM 500 MG/5 ML VIAL (BRIDION) As Ordered ONE (10:22)
[2024-06-04] MEDS ORDERED: METOCLOPRAMIDE INJ 10MG/2ML VIAL As Ordered ONE (10:22)
[2024-06-04] MEDS ORDERED: ONDANSETRON 4MG 2ML VIAL As Ordered ONE (10:22)
[2024-06-04] MEDS: BUPivacaine LIPOSOME/PF 266MG 20ML VIAL (13.3MG/ML)(EXPAREL) As Ordered ONE (11:05)
[2024-06-04] MEDS ORDERED: fentaNYL 100 MCG/2 ML INJECTION As Ordered ONE (11:07)
[2024-06-04] MEDS ORDERED: LR 1,000 ML IV SCH (11:15)
[2024-06-04] MEDS ORDERED: fentaNYL 100 MCG/2 ML INJECTION IV PRN (11:15)
[2024-06-04] MEDS ORDERED: oxyCODONE 5MG TAB PO PRN (11:15)
[2024-06-04] MEDS ORDERED: HYDROMORPHONE HCL 0.5 MG/ 0.5 ML SYRINGE IV PRN (11:15)
[2024-06-04] MEDS: ONDANSETRON 4MG 2ML VIAL IV PRN (11:46)
[2024-06-04 11:58] VITALS: BP 115/73
[2024-06-04 12:25] VITALS: TEMP 98; O2SAT 100
== END 2024-06-04 12:36 | disposition home or self-care (01) ==
LOC: M SDC 07:19
PROVIDERS: ATTEND Dentist
DX: K02.9 Dental caries, unspecified (principal); F40.232 Fear of other medical care; Z88.6 Allergy status to analgesic agent; Z79.899 Other long term (current) drug therapy; F17.210 Nicotine dependence, cigarettes, uncomplicated
CPT/HCPCS: 81025; 88300; D7140; D7210; J0131; J0295; J0666; J1100; J1885; J2250; J2405; J2765; J3010

== ENCOUNTER → 2025-01-01 | Outpatient (REF) | payer OTHER ==
[~2025-01-01] MED LIST changes: +HYDR12.510 PO; -HYDR12CA PO; -IBUP-1022 PO; +IBUP600T42 PO
== END ==
LOC: M SFHCPLAZ 08:12
PROVIDERS: ATTEND Family Medicine
DX: I10 Essential (primary) hypertension (principal); R00.2 Palpitations; M25.50 Pain in unspecified joint; Z53.9 Procedure and treatment not carried out, unspecified reason

== ENCOUNTER → 2025-01-01 | Outpatient (CLI) | payer OTHER ==
[2025-01-01 14:11] LABS: BASO # 0.1 10^3/uL (0.0-0.2); BASO % 0.6 % (0.0-1.0); EOS # 0.1 10^3/uL (0.0-0.5); EOS % 1.4 % (0.0-3.0); LYMPH # 2.8 10^3/uL (1.5-5.0); LYMPH % 32.6 % (24.0-44.0); MONO # 1.1 10^3/uL (0.0-0.8); MONO % 12.8 % (2.0-8.0); NEUTROPHILS # 4.3 10^3/uL (1.5-8.5); NEUTROPHILS % 51.5 % (36.0-66.0); PLATELET COUNT, AUTOMATED 332 10^3/uL (150-450)
[2025-01-01 14:14] LABS: C REACTIVE PROTEIN QUANTITATIV < 0.50 MG/DL (<1.0); RHEUMATOID FACTOR QUANT 3.7 IU/ML (<14)
[2025-01-01 14:15] LABS: ALT/SGPT 19 U/L (7.0-40); AST/SGOT 16 U/L (<34); CALCIUM LEVEL 9.3 MG/DL (8.5-10.1); CARBON DIOXIDE LEVEL 25 MMOL/L (20-31); CHLORIDE LEVEL 106 MMOL/L (98-107); CHOLESTEROL LEVEL 223 MG/DL (<200); CHOLESTEROL RISK RATIO 5.76 (<5); CREATININE FOR GFR 0.67 MG/DL (0.55-1.30); GLOMERULAR FILTRATION RATE > 90.0 (>58); LDL CHOLESTEROL 145.7 MG/DL (<100); NON-HDL-C 184.3 MG/DL; POTASSIUM SERUM 4.5 MMOL/L (3.5-5.1); SODIUM LEVEL 139 MMOL/L (136-145); TRIGLYCERIDES LEVEL 193 MG/DL (<150)
[2025-01-01 14:20] LABS: ERYTHROCYTE SEDIMENTATION RATE 28 mm/hr (0-20)
[2025-01-01 14:37] LABS: ESTIMATED AVERAGE GLUCOSE 134.0 MG/DL (60-110)
[2025-01-01 14:44] LABS: CREATININE, URINE 53.4 MG/DL; MALB URINE SIEMENS 285.0 MG/L; MAU/CREAT RATIO 533.7 MCG/MG (0.0-30.0)
== END ==
LOC: M LABDRWAD 08:22
PROVIDERS: ATTEND Family Medicine
DX: I10 Essential (primary) hypertension (principal); R00.2 Palpitations; M25.50 Pain in unspecified joint

== ENCOUNTER → 2025-01-09 | Outpatient (REF) | payer OTHER ==
[2025-01-09 14:15] LABS: APPEARANCE, URINE CLEAR (CLEAR); BACTERIA, URINE AUTO NEGATIVE (NEGATIVE); BILIRUBIN, URINE AUTO NEGATIVE (NEGATIVE); BLOOD, URINE BLOOD NEGATIVE (NEGATIVE); GLUCOSE, URINE (UA) AUTO NEGATIVE (NEGATIVE); KETONE, URINE AUTO NEGATIVE (NEGATIVE); LEUKOCYTE ESTERASE, URINE AUTO NEGATIVE (NEGATIVE); NITRITE, URINE AUTO NEGATIVE (NEGATIVE); PROTEIN, URINE AUTO 2+ mg/dL (NEGATIVE); RBC, URINE AUTO 0 /HPF (0-3); SPECIFIC GRAVITY URINE AUTO 1.006 (1.002-1.035); SQUAMOUS EPITHELIAL CELL UR AU 1 /HPF (0-6); UROBILINOGEN, URINE AUTO 0.2 mg/dL (0.0-2.0); WBC, URINE AUTO 0 /HPF (0-3)
[2025-01-09 14:29] LABS: CREATININE, URINE 42.8 MG/DL; MALB URINE SIEMENS 307.0 MG/L; MAU/CREAT RATIO 717.2 MCG/MG (0.0-30.0)
[2025-01-10 13:22] LABS: PROTEIN CREATININE RATIO 1233 mg/g creat (24-184); T PROTEIN CREATININE RATIO 1.233 (0.024-0.184); UPEP CREATININE 43 mg/dL (20-275); UPEP TOTAL PROTEIN 53 mg/dL (5-24)
[2025-01-13 11:38] LABS: UPEP ALBUMIN 87 %; URINE ALPHA 1 GLOBULIN 3 %; URINE ALPHA 2 GLOBULIN 2 %; URINE BETA GLOBULIN 4 %; URINE GAMMA GLOBULIN 3 %
== END ==
LOC: M SFHCADAM 10:16
PROVIDERS: ATTEND Family Medicine
DX: R80.9 Proteinuria, unspecified (principal)